=== PATIENT | male | born 1940 | race Caucasian/White ===

== ENCOUNTER 2017-03-25 08:48 | Emergency (ER) | payer OTHER ==
[2017-03-25] MEDS ORDERED: HYDROmorphONE/DILAUDID 1 MG/ML SYR IVP ONE ×2 (09:04→10:47)
--- NOTE | 2017-03-25 09:05 | EDPHY ---
HPI/HX/ROS/PE/MDM Narrative: CHIEF COMPLAINT: Back pain HPI: This patient is a 77 year old male arriving with his complaining of left- sided lumbar pain onset Tuesday afternoon. He has had history of back problems , and has been treated with shots in his spine. His most recent MRI was in November at [facility]. His current pain began suddenly, and he denies injury or unusual activity. Yesterday morning, the pain began radiating down his left leg. He took Vicodin with no relief of pain. Today, he has developed numbness on the outside of his left lower extremity below the knee. He cannot stand or walk due to pain. He denies difficulty urinating or incontinence. He denies abdominal pain, fever, or other associated symptoms. REVIEW OF SYSTEMS: Aside from elements discussed in the HPI, a comprehensive 10-point review of systems was reviewed and is negative. PMH: Denies. SOCIAL HISTORY: Works in [employer] business. at bedside. PHYSICAL EXAM: General:Patient is alert, in no acute distress. ENT:Eyes are normal to inspection. ENT inspection normal. Neck: Normal inspection. Full range of motion. Respiratory:No respiratory distress. Breath sounds normal bilaterally. Cardiovascular: Regular rate and rhythm. Strong peripheral pulses. Normal cap refill. Abdomen:The abdomen is nontender to palpation. There are no peritoneal signs. There are normal bowel sounds. Back: Tenderness at left sided sciatic notch. Normal to inspection. Skin: Normal color. No rash. Warm and dry. Extremities: Normal appearance. Full range of motion. Neuro: Oriented x3. Normal motor function. Normal sensory function. ED Course: 77 year old male presents with left-sided sciatic pain worsening since Tuesday afternoon, two days ago. Physical exam reveals tenderness over the left sciatic notch. Plan for MRI of lumbar spine. Plan to administer 1mg IV Dilaudid and 4mg IV Zofran for symptom relief. Patient is still feeling considerable pain when attempting to lie down for his MRI. Plan to administer an additional 1mg IV Dilaudid. 11:[address] Arreaga, radiologist. MRI shows multilevel degenerative disk and degenerative joint disease lumbar spine, stable appearance to prior examination. Plan to discharge home in good condition with prescriptions for Vicodin and Medrol Dosepak. He will follow up with a rheumatology specialist in one week. Return precautions discussed. The patient is comfortable with this plan. MDM: This patient presents with classic symptoms of sciatica with a history of chronic back issues. Given his report of severe pain and inability to stands secondary to pain, we performed an MRI of the L-spine which reveals worsening disease at the left L5 level, but no signs of surgical emergency. The patient has a normal neuro exam and no history of fever, trauma or incontinence to suggest other etiology. He has no abdominal pulsatile mass or pain to suggest AAA and MRI is consistent with his symptoms. He is comfortable with plan to try treatment at home with Medrol dose-milton and percocet. He will recontact his rheumatology specialist to follow-up within the next week. 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 The level of more significance is at L2-L3 which has a stable appearance to the prior examination. New over the interval is a small left posterolateral protrusion slightly compressing the L5 nerve root at the lateral recess at L4- L5. Slight worsening of the facet arthropathy at L5-S1 but causing no progressive encroachment. Otherwise stable as detailed above by level. Results called and discussed with Cedric Kerr MD, at 1133 hours 25 March 2017. Imaging: Discussed imaging studies w/ call box wirer Radiologist Medications Given: Discontinued Medications Hydromorphone HCl (Dilaudid) 1 mg IVP EDNOW ONE Stop: 03/25/17 09:05 Last Admin: 03/25/17 09:29 Dose: 1 mg Hydromorphone HCl (Dilaudid) 1 mg IVP EDNOW ONE Stop: 03/25/17 10:48 Last Admin: 03/25/17 11:18 Dose: 1 mg Ondansetron HCl (Zofran) 4 mg IVP EDNOW ONE Stop: 03/25/17 09:19 Last Admin: 03/25/17 09:29 Dose: 4 mg General Time Seen by Provider: 03/25/17 08:55 Initial Vital Signs: Initial Vital Signs Temperature (C) 36.5 C 03/25/17 08:50 Heart Rate 81 03/25/17 08:50 Respiratory Rate 16 03/25/17 08:50 Blood Pressure 138/94 H 03/25/17 08:50 O2 Sat (%) 95 03/25/17 08:50 O2 Delivery Mode Room Air Allergies/Adverse Reactions: Penicillins Allergy (Mild, Verified 06/02/09 09:04) Rash Home Medications: Medication Instructions Recorded Aspirin 03/25/17 Celebrex 03/25/17 Hydrocodone/APAP 5/325 [[place] 1 - 2 tab PO Q4H PRN #20 tab 03/25/17 5/325 (RX)] Vicodin 5-300 mg Tablet 03/25/17 methylPREDNISolone [Medrol Dose 1 each PO AD #1 ea 03/25/17 Milton] Departure - Departure Disposition: Home, Routine, Self-Care Clinical Impression: Sciatica of left side Condition: Good Instructions: Sciatica (ED), Acute Low Back Pain (ED) Additional Instructions: 1. Follow up with a rheumatology specialist within one week. We have referred you to our neurosurgeon contour path tape mill operator. 2. Take Vicodin as prescribed for severe pain. You may also use ibuprofen and Tylenol as directed on the packaging. Do not take Tylenol while you are taking Vicodin, as both of these medications contain acetaminophen. 3. Take your Medrol Dosepak as prescribed. 4. Return to the emergency department for severe pain, fever, trouble controlling your bladder or bowels, increased numbness, change in location or nature of pain or other concerns. Referrals: Mau Galindo MD [Primary Care Provider] - As per Instructions Castro Baez MD [Medical Doctor] - As per Instructions Prescriptions: Hydrocodone/APAP 5/325 [[place] 5/325 (RX)] 1 - 2 tab PO Q4H PRN #20 tab PRN Reason: Pain, Moderate methylPREDNISolone [Medrol Dose Milton] 1 each PO AD #1 ea Report Scribed for: Cedric Kerr Report Scribed by: Nasrin Mack Date of Report: 03/25/17 Time of Report: 09:46 Physician Review and Approval Statement: Portions of this note were transcribed by an ED scribe. I personally performed the history, physical exam, and medical decision making; and confirm the accuracy of the information in the transcribed note.
[2017-03-25] MEDS ORDERED: ONDANSETRON 4 MG/2 ML VIAL IVP ONE (09:18)
[2017-03-25] MEDS ORDERED: HYDROmorphONE/DILAUDID 1 MG/ML SYR ONE (10:42)
[2017-03-25 12:22] VITALS: O2SAT 97
[2017-03-25 12:36] VITALS: BP 130/90; PULSE 63; RESP 16; TEMP 97.6
== END 2017-03-25 12:37 | disposition home or self-care (01) ==
DX: M54.32 Sciatica, left side (principal); Z79.82 Long term (current) use of aspirin
CPT/HCPCS: 72148; 96374; 96375; 96376; 99285; J1170; J2405

== ENCOUNTER 2017-04-14 05:44 | Inpatient (IN) | payer OTHER ==
[2017-04-14] MEDS ORDERED: GABAPENTIN 300 MG CAP PO ONE (05:51)
[2017-04-14] MEDS ORDERED: morphINE PF 5 MG/10 ML INJ IT ONE (05:51)
[2017-04-14] MEDS ORDERED: ACETAMINOPHEN 500 MG TAB PO ONE (05:51)
[2017-04-14] MEDS ORDERED: ceFAZolin 2 GM/DEXTROSE 100 ML IV ONE (05:51)
[2017-04-14] MEDS ORDERED: DEXAMETHASONE 10 MG/ML VIAL IVP ONE (05:51)
[2017-04-14] MEDS ORDERED: fentaNYL 100 MCG/2 ML INJ IT ONE (05:51)
[2017-04-14] MEDS ORDERED: LR 1,000 ML IV ONE (05:54)
[2017-04-14] MEDS ORDERED: LIDOCAINE 1% 2 ML INJ ID PRN (05:54)
[2017-04-14] MEDS ORDERED: TRANEXAMIC ACID 1,000 MG in NS 100 ML IV ONE (06:00)
--- NOTE | 2017-04-14 06:08 | PDHPUP ---
History & Physical Update H&P update statement: This history and physical update is based on an assessment of the patient which was completed after admission or registration (within 24 hours), but prior to the surgery/procedure. H&P update: H&P reviewed & patient examined, no change in patient's condition since H&P completed
[2017-04-14] MEDS ORDERED: CHLORHEXIDINE GLUC HIBICLENS 118 ML BTL TP ONE (06:36)
[2017-04-14] MEDS ORDERED: THROMBIN (BOVINE) 5,000 UNIT VIAL TP ONE (06:36)
[2017-04-14] MEDS ORDERED: BUPIVACAINE 0.25% 30 ML SDV ONE (06:36)
[2017-04-14] MEDS ORDERED: BACITRACIN 50,000 UNITS/10 ML SYR IRR ONE (06:36)
[2017-04-14] MEDS ORDERED: MIDAZOLAM 2 MG/2 ML VIAL IVP ONE (07:05)
--- NOTE | 2017-04-14 07:08 | PDANEPAE ---
ANE History of Present Illness L2-L3 TLIF ANE Past Medical History - Cardiovascular History Hx Hypertension: No Hx Arrhythmias: No Hx Chest Pain: No Hx Coronary Artery / Peripheral Vascular Disease: No Hx CHF / Valvular Disease: No Hx Palpitations: No - Pulmonary History Hx COPD: No Hx Asthma/Reactive Airway Disease: No Hx Recent Upper Respiratory Infection: No Hx Oxygen in Use at Home: No Hx Sleep Apnea: Yes Sleep Apnea Screening Result - Last Documented: Positive - Neurologic History Hx Cerebrovascular Accident: No Hx Seizures: No Hx Dementia: No - Endocrine History Hx Diabetes: No - Renal History Hx Renal Disorders: No - Liver History Hx Hepatic Disorders: No - Neurological & Psychiatric Hx Hx Neurological and Psychiatric Disorders: No - Cancer History Hx Cancer: No - Congenital Disorder History Hx Congenital Disorders: No - GI History Hx Gastrointestinal Disorders: Yes Gastrointestinal History Comment: REFLUX/GERD controlled - Other Health History Other Health History: NONE,BRUISE EASILY - Chronic Pain History Chronic Pain: No - Surgical History Prior Surgeries: BILAT SHOULDER REPLACEMENT ANE Review of Systems Review of systems is: negative Review of Systems: - Exercise capacity Exercise capacity: >=4 METS METS (RN): 4 METS ANE Patient History - Allergies Allergies/Adverse Reactions: Penicillins Allergy (Mild, Verified 06/02/09 09:04) Rash - Home Medications Home medications: home medication list seen and reviewed Home Medications: celeCOXIB [Celebrex (*)] 200 mg PO HS 03/25/17 [Last Taken 04/12/17] Calcium Carbonate [Tums 500MG (*)] 500 mg PO DAILY 04/13/17 [Last Taken 04/12/17 ] Cholecalciferol Vit D3 [Vitamin D3 (*)] 1,000 units PO DAILY 04/13/17 [Last Taken 04/12/17] Gabapentin [Neurontin 300 MG (*)] 300 mg PO TID 04/13/17 [Last Taken 04/13/17] HYDROcodone/APAP 10/325 [[place] 10/325 (*)] 1 tab PO Q6HRS PRN 04/13/17 [Last Taken 04/14/17 03:30] Dennard-3 Fatty Acids [Fish Oil 1000 mg (*)] 1,000 mg PO DAILY 04/13/17 [Last Taken Unknown] Propylene Glycol/Peg 400/Pf [Systane 0.3-0.4% Eye Drops] 1 each OP DAILY PRN 01/22 [Last Taken 04/13/17] Psyllium Husk (with Sugar) [Metamucil Packet] 1 each PO DAILY 04/13/17 [Last Taken 04/13/17] Tamsulosin HCl [Flomax 0.4 MG (*)] 0.4 mg PO DAILY18 04/13/17 [Last Taken ] - NPO status NPO Status: no food or drink >8 hours NPO Since - Liquids (Date): 04/13/17 NPO Since - Liquids (Time): 18:30 NPO Since - Solids (Date): 04/13/17 NPO Since - Solids (Time): 18:30 - Anes Hx Anes Hx: no prior problems - Smoking Hx Smoking Status: Former smoker - Family Anes Hx Family Anes Hx: none Family Hx Anesthesia Complications: NONE ANE Labs/Vital Signs - Vital Signs Blood Pressure: 124/70 Heart Rate: 64 Respiratory Rate: 16 O2 Sat (%): 91 Height: 170.18 cm Weight: 76.204 kg ANE Physical Exam - Airway Neck exam: FROM Mallampati Score: Class 1 Mouth exam: normal dental/mouth exam - Pulmonary Pulmonary: no respiratory distress - Cardiovascular Cardiovascular: regular rate and rhythym - ASA Status ASA Status: II ANE Anesthesia Plan Anesthesia Plan: general endotracheal anesthesia
[2017-04-14] MEDS ORDERED: ROCURONIUM 50 MG/5 ML VIAL ONE (07:10)
[2017-04-14] MEDS ORDERED: ONDANSETRON 4 MG/2 ML VIAL ONE (07:10)
[2017-04-14] MEDS ORDERED: DEXAMETHASONE 4 MG/ML VIAL ONE (07:10)
[2017-04-14] MEDS ORDERED: LIDOCAINE 2% 100 MG/5 ML SYR ONE (07:10)
[2017-04-14] MEDS ORDERED: HYDROmorphONE/DILAUDID 2 MG/ML INJ ONE (07:11)
[2017-04-14] MEDS ORDERED: fentaNYL 100 MCG/2 ML INJ ONE ×2 (07:11→08:56)
[2017-04-14] MEDS ORDERED: PROPOFOL/EMULSION 500 MG/50 ML BOTTLE IV ONE (07:11)
[2017-04-14] MEDS ORDERED: PROPOFOL 200 MG/20 ML VIAL ONE (07:11)
[2017-04-14] MEDS ORDERED: REMIFENTANIL HCL 1 MG VIAL ONE (07:11)
[2017-04-14] MEDS ORDERED: DEXAMETHASONE 4 MG/ML VIAL IVP PRN (08:29)
[2017-04-14] MEDS ORDERED: PROMETHAZINE HCL 25 MG/ML INJ IVP PRN (08:29)
[2017-04-14] MEDS ORDERED: ONDANSETRON 4 MG/2 ML VIAL IVP PRN ×2 (08:29→09:22)
[2017-04-14] MEDS ORDERED: MEPERIDINE 25 MG/ML SYR IVP PRN (08:29)
[2017-04-14] MEDS ORDERED: ACETAMINOPHEN 500 MG TAB PO PRN (08:29)
[2017-04-14] MEDS ORDERED: HYDROCODONE/APAP 5/325 TAB PO PRN (08:29)
[2017-04-14] MEDS ORDERED: OXYCODONE/APAP 5/325 TAB PO PRN (08:29)
[2017-04-14] MEDS ORDERED: NALOXONE HCL 0.4 MG/ML INJ IVP PRN ×2 (08:29→09:22)
[2017-04-14] MEDS ORDERED: fentaNYL 100 MCG/2 ML INJ IVP PRN (08:29)
--- NOTE | 2017-04-14 08:31 | POSTANESTH ---
Post Anesthetic Evaluation Cardiovascular Status: Normal, Stable, Similar to Pre-Op Cond Respiratory Status: Normal, Stable, Similar to Pre-op Cond. Level of Consciousness/Mental Status: Can Participate in Eval, Alert and Oriented, Mildly Sleepy, Arousable Pain Control: Adequate, Prn Tx Ordered Nausea/Vomiting Control: Adequate, Prn Tx Ordered Complications Possibly Related to Anesthesia: None Noted
[2017-04-14] MEDS ORDERED: METHOCARBAMOL 750 MG TAB PO PRN (09:22)
[2017-04-14] MEDS ORDERED: MAGNESIUM HYDROXIDE 30 ML UDCUP PO PRN (09:22)
[2017-04-14] MEDS ORDERED: NON-FORMULARY NEW DRUG (Propylene Glycol/Peg 400/Pf [Systane 0.3-0.4% Eye Drops] 1 EACH) OP PRN (09:22)
[2017-04-14] MEDS ORDERED: LACTULOSE 20 GM/30 ML UDCUP PO PRN (09:22)
[2017-04-14] MEDS ORDERED: BISACODYL 10 MG SUPP PR PRN (09:22)
[2017-04-14] MEDS ORDERED: HYDROCODONE/APAP 10/325 TAB PO PRN (09:22)
[2017-04-14] MEDS ORDERED: HYDROmorphONE/DILAUDID 6 MG/30 ML PCA IV PRN (09:22)
[2017-04-14] MEDS ORDERED: diphenhydrAMINE 25 MG CAP PO PRN (09:22)
[2017-04-14] MEDS ORDERED: ONDANSETRON DISINTEGRATING 4 MG TAB PO PRN (09:22)
[2017-04-14] MEDS ORDERED: NS 1,000 ML IV SCH (09:30)
--- NOTE | 2017-04-14 09:30 | SOAPPROG ---
SOAP Progress Note Assessment/Plan: Assessment: 77 yo M sp L2/3 TLIF Plan: stable LSO brace to be fit by Fritz Freeman PT/OT lovenox on POD #1 please call with neuro changes 04/14/17 09:29 Subjective: + back pain, no leg pain Objective: Vital Signs Temp Pulse Resp BP Pulse Ox 36.7 C 64 16 124/70 H 91 L 04/14/17 06:07 04/14/17 07:08 04/14/17 07:08 04/14/17 07:08 04/14/17 07:08 awake, alert PERRL, no facial droop AIRAM x 4 + light touch ICD10 Worksheet Patient Problems: Problems Problem Status Onset Fusion of spine of lumbar region Acute - ICD10 Problem Qualifiers (1) Fusion of spine of lumbar region
[2017-04-14] MEDS ORDERED: SYSTANE OP PRN (09:40)
[2017-04-14] MEDS ORDERED: EYE OP PRN (09:40)
--- NOTE | 2017-04-14 09:48 | GOP ---
[f rep st] OPERATIVE REPORT DATE OF OPERATION: 04/14/2017 SURGEON: Bob Shepherd MD NEUROSURGEON: Bob Shepherd MD FORM WORKER: DARIO Ashford. ANESTHESIA: General endotracheal. PREOPERATIVE DIAGNOSIS: 1. Severe L2-3 degenerative disk disease with lateral disc herniation and severe L2/L3 radiculopathi es. 2. Intractable pain. 3. Failed conservative care. POSTOPERATIVE DIAGNOSIS: 1. Severe L2-3 degenerative disk disease with lateral disc herniation and severe L2/L3 radiculopathi es. 2. Intractable pain. 3. Failed conservative care. PROCEDURE PERFORMED: 1. Mini open exposure for left-sided L2-3 far lateral transpedicular decompression with L2-3 posteri or nonsegmental (pedicle screw and axial device) fixation and posterolateral fusion with local autogr aft and bone morphogenic protein and morselized allograft. 2. L2-3 posterior/transforaminal lumbar interbody fusion with 2 structural PEEK interbody spacers, l ocal autograft and bone morphogenic protein. 3. Use of intraoperative microscopy, fluoroscopy, and computer volumetric stereotactic navigation wi th intraoperative neurophysiologic testing. 4. Injection of intrathecal narcotic analgesics for postoperative pain control. FINDINGS: ESTIMATED BLOOD LOSS: Trace. INDICATIONS: The patient is a 77-year-old male with intractable low back pain and left lower extremi ty radicular symptoms secondary to severe disk degeneration and collapse with neural foraminal imping ement at the L2-3 level. He has failed extensive conservative care and presents now for surgical dec ompression and stabilization. DESCRIPTION OF PROCEDURE: After informed consent was obtained, the patient was taken to the operatin g room and placed in the prone position on the Alfredo table. The lumbosacral area was prepped and d raped in a sterile fashion. After fluoroscopic localization of the correct level, the subcutaneous a nd intramuscular tissues were infiltrated with local anesthesia. A midline linear incision was then created over the L2-3 spinous processes. This was carried down the fascial layer, which was incised using monopolar electrocautery and carried in a subperiosteal plane along the spinous processes and l marina bilaterally. Intraoperative fluoroscopy was again utilized to verify the correct levels. Foll owing this, the dissection was carried out over the facet joints. The microscope was then brought in and a left-sided far lateral trans facet, transpedicular decompression was performed with complete u nroofing of the facet joint on the left side at the L2-3 level. The L2 and L3 neural foramen were wi ana maria decompressed. The spinous process was undercut as well and a central canal decompression was pe rformed. Following adequate decompression, the [employer] [place] neuronavigational system was brought in and u sing computer volumetric stereotactic navigation, pedicle screws were placed on the left at the L2 an d L3 levels. Each individual screw was tested neurophysiologically with monopolar electrostimulation and interpretation of the potentials by the surgeon. A stefano was then placed and secured under distra ction, during which time a complete diskectomy was performed with preparation of endplates and placem ent of 2 structural PEEK interbody spacers, local autograft and bone morphogenic protein for an L2-3 posterior/transforaminal lumbar interbody fusion. Following this, a screw and stefano system were placed in a slight amount of compression in order to facilitate bony union and to minimize the potential fo r posterior graft migration. The remaining lamina and facet joint on the right side were then extens ively decorticated, and the residual local autograft along with bone morphogenic protein and morseliz ed allograft was placed out laterally for posterolateral fusion at the L2-3 level. Following re-veri fication of good position of the screws, stfeano, interbody spacers and Axle interbody spacers, the wound was copiously irrigated and meticulous hemostasis was achieved. An Axle device was placed at the L2 -3 level in lieu of pedicle screws on the right side in order to maximize the bony surface area for t he posterolateral fusion and minimizing further risk of complications with more pedicle screws. Foll owing this, a drain was placed. The wound was copiously irrigated with antibiotic irrigation. 200 m cg of Duramorph along with 50 mcg of fentanyl were injected intrathecally for postoperative pain cont rol. The wound was closed in a layered fashion using interrupted Vicryl sutures followed by Steri-Str ips on the skin. COMPLICATIONS: None. DISPOSITION: The patient is currently in the process of being repositioned for extubation. /[id number]/MODL
[2017-04-14] MEDS ORDERED: DIAZEPAM 5 MG TAB PO PRN (09:49)
[2017-04-14] MEDS: ACETAMINOPHEN 500 MG TAB PO SCH ×2 (14:13→21:59)
[2017-04-14] MEDS: ceFAZolin 2 GM/DEXTROSE 100 ML IV SCH ×2 (14:13→22:01)
[2017-04-14] MEDS: GABAPENTIN 300 MG CAP PO SCH ×2 (16:30→21:58)
[2017-04-14] MEDS: POLYETHYLENE GLYCOL 3350 17 GM PKT PO SCH ×2 (16:30→21:58)
[2017-04-14] MEDS: TAMSULOSIN HCL 0.4 MG CAP PO SCH (18:15)
[2017-04-14] MEDS: morphINE SR 15 MG TAB PO SCH (21:59)
[2017-04-14] MEDS: SENNOSIDES/DOCUSATE SODIUM TAB PO SCH (21:59)
[2017-04-14] MEDS: FAMOTIDINE 20 MG TAB PO SCH (21:59)
[2017-04-15 04:49] LABS: ABSOLUTE IMMATURE GRANULOCYTES 0.22 10^3/uL (0.00-0.10); ADD DIFF? NO; ADD MORPH? NO; ADD SCAN? NO; ATYPICAL LYMPHOCYTE FLAG 0 (0-99); FRAGMENT RBC FLAG 0 (0-99); HEMATOCRIT 34.1 % (40.0-51.0); HEMOGLOBIN 11.1 g/dL (13.7-17.5); LEFT SHIFT FLG 0 (0-99); LIPEMIA HEMOLYSIS FLAG 80 (0-99); MEAN CELL HEMOGLOBIN 32.6 pg (27.9-34.1); MEAN CELL HEMOGLOBIN CONCENTR. 32.6 g/dL (32.4-36.7); MEAN PLATELET VOLUME 11.6 fL (8.7-11.7); PLATELET CLUMPS FLAG 0 (0-99); PLATELET COUNT 200 10^3/uL (150-400); RED BLOOD CELL COUNT 3.41 10^6/uL (4.40-6.38); RED CELL DISTRIBUTION WIDTH 15.2 % (11.5-15.2)
[2017-04-15 05:09] LABS: ANION GAP 6 mEq/L (8-16); CARBON DIOXIDE 24 mEq/l (22-31); CHLORIDE 104 mEq/L (97-110); CREATININE 0.9 mg/dL (0.7-1.3); GLOMERULAR FILTRATION RATE > 60; GLUCOSE 107 mg/dL (70-100); POTASSIUM 4.1 mEq/L (3.5-5.2); SODIUM 134 mEq/L (134-144)
[2017-04-15] MEDS: ACETAMINOPHEN 500 MG TAB PO SCH ×3 (05:38→22:12)
[2017-04-15] MEDS: GABAPENTIN 300 MG CAP PO SCH ×3 (08:30→22:13)
[2017-04-15] MEDS: CALCIUM CARBONATE 500 MG CHEWABLE TAB PO SCH (08:30)
[2017-04-15] MEDS: SENNOSIDES/DOCUSATE SODIUM TAB PO SCH ×2 (08:31→22:15)
[2017-04-15] MEDS: PSYLLIUM METAMUCIL 1 PKT PO SCH (08:32)
[2017-04-15] MEDS: FAMOTIDINE 20 MG TAB PO SCH ×2 (08:34→22:13)
[2017-04-15] MEDS: ENOXAPARIN 40 MG/0.4 ML SYR SC SCH (08:37)
--- NOTE | 2017-04-15 09:28 | SOAPPROG ---
SOAP Progress Note Assessment/Plan: Assessment: Doing well POD #1 s/p L2/3 TLIF pain well controlled Plan: Lovenox starts today Continue SETH drain x 5 days LSO when out of bed xrays today PT/OT DC home once xrays completed as long as he's doing well. D/W Dr. Ruggiero 04/15/17 09:25 d 04/15/17 09:30 Subjective: awake, alert, comfortable. Denies pain weakness or tingling Objective: Vital Signs Temp Pulse Resp BP Pulse Ox 36.8 C 66 18 96/58 L 95 04/15/17 03:26 04/15/17 08:00 04/15/17 08:00 04/15/17 08:00 04/15/17 08:00 Laboratory Results 04/15/17 04:25 04/15/17 04:25 04/14/17 04/15/17 04/16/17 05:59 05:59 05:59 Intake Total 2799 Output Total 1700 Balance 1099 SETH : 110ml Neuro: CRUZ, sens +LT Incision: CDI ICD10 Worksheet Patient Problems: Problems Problem Status Onset Fusion of spine of lumbar region Acute
[2017-04-15] MEDS: morphINE SR 15 MG TAB PO SCH ×2 (10:26→22:14)
[2017-04-15] MEDS: POLYETHYLENE GLYCOL 3350 17 GM PKT PO SCH ×3 (10:27→22:15)
--- NOTE | 2017-04-15 10:46 | WOCRNPDOC ---
WOCRN Advanced Assessment Note - Skin Integrity Problem, Advanced Assess Gluteal Cleft Dressing Type: Allevyn Life Exudate Amount: None Exudate Characteristic(s): None Integumentary Issue Intervention: Barrier Cream Applied (Calazime) Daisy Wound Tissue: Blanching, Intact Daisy Wound Swelling: None Wound Bed Color: Red Wound Bed Constitution: Smooth Tissue (non-granulating) Site Measurement - Head-to-Toe Length X Width X Depth (cm): 0.2cmx0.5cmx0.1cm Skin Integrity Problem Comment: Small, linear area of partial-thickness tissue loss noted in patient's R gluteal cleft. Appearance is more consistent w/ moisture-associated damage than pressure injury. Calazime cream applied to this wound and surrounding skin. Wound care does not need to follow this patient going forward. Report given to building architectural designerIBAN Nj.
[2017-04-15] MEDS: oxyCODONE IR 5 MG TAB PO PRN ×2 (17:07→22:21)
[2017-04-15] MEDS: TAMSULOSIN HCL 0.4 MG CAP PO SCH (17:07)
[2017-04-16] MEDS: ACETAMINOPHEN 500 MG TAB PO SCH (04:42)
[2017-04-16] MEDS: oxyCODONE IR 5 MG TAB PO PRN ×2 (04:44→09:59)
[2017-04-16 05:27] LABS: HEMATOCRIT 35.5 % (40.0-51.0); HEMOGLOBIN 11.4 g/dL (13.7-17.5); MEAN CELL HEMOGLOBIN 32.5 pg (27.9-34.1); MEAN CELL HEMOGLOBIN CONCENTR. 32.1 g/dL (32.4-36.7); MEAN CELL VOLUME 101.1 fL (81.5-99.8); RED BLOOD CELL COUNT 3.51 10^6/uL (4.40-6.38); RED CELL DISTRIBUTION WIDTH 15.6 % (11.5-15.2)
--- NOTE | 2017-04-16 07:16 | SOAPPROG ---
SOAP Progress Note Assessment/Plan: Assessment: Plan: Objective: Vital Signs Temp Pulse Resp BP Pulse Ox 37.1 C 64 18 106/63 95 04/16/17 03:18 04/16/17 03:18 04/16/17 03:18 04/16/17 03:18 04/16/17 03:18 Laboratory Results 04/16/17 04:41 04/15/17 04:25 04/15/17 04/16/17 04/17/17 05:59 05:59 05:59 Intake Total 2799 150 Output Total 1700 5 Balance 1099 145 ICD10 Worksheet Patient Problems: Problems Problem Status Onset Fusion of spine of lumbar region Acute
--- NOTE | 2017-04-16 07:19 | SOAPPROG ---
SOAP Progress Note Assessment/Plan: Assessment: Doing well POD #2 s/p L2/3 TLIF pain well controlled Plan: d/c home today, WBC decreased to 15 from 21 SETH drain 110 output, discuss removal with Dr. Elvia DE PAZ when out of bed xrays show intact hardware with stable alignment PT/OT 04/16/17 07:17 Subjective: no complaints Objective: Vital Signs Temp Pulse Resp BP Pulse Ox 37.1 C 64 18 106/63 95 04/16/17 03:18 04/16/17 03:18 04/16/17 03:18 04/16/17 03:18 04/16/17 03:18 Laboratory Results 04/16/17 04:41 04/15/17 04:25 04/15/17 04/16/17 04/17/17 05:59 05:59 05:59 Intake Total 2799 150 Output Total 1700 5 Balance 1099 145 AAOx3, full strength/sensation, no drift, wound c/d/i - Pending Discharge Pending Discharge Within 24 Hours: Yes Pending Discharge Date: 04/17/17 Pending Discharge Time: 11:00 ICD10 Worksheet Patient Problems: Problems Problem Status Onset Fusion of spine of lumbar region Acute
[2017-04-16 08:20] VITALS: BP 119/72; PULSE 69; RESP 16; TEMP 98; O2SAT 97
[2017-04-16] MEDS: CALCIUM CARBONATE 500 MG CHEWABLE TAB PO SCH (10:00)
[2017-04-16] MEDS: PSYLLIUM METAMUCIL 1 PKT PO SCH (10:00)
[2017-04-16] MEDS: FAMOTIDINE 20 MG TAB PO SCH (10:00)
[2017-04-16] MEDS: GABAPENTIN 300 MG CAP PO SCH (10:00)
[2017-04-16] MEDS: morphINE SR 15 MG TAB PO SCH (10:15)
[2017-04-16] MEDS: ENOXAPARIN 40 MG/0.4 ML SYR SC SCH (10:15)
[2017-04-16] MEDS: SENNOSIDES/DOCUSATE SODIUM TAB PO SCH (10:16)
[2017-04-16] MEDS: POLYETHYLENE GLYCOL 3350 17 GM PKT PO SCH (10:16)
--- NOTE | 2017-04-17 17:06 | ASDISCHSUM ---
Discharge Information Plan Status:Home with No Needs Medically Cleared to Leave:04/16/2017 Discharge Date:04/16/2017 12:41 PM CM D/C Disposition:Home, Routine, Self-Care ADT D/C Disposition:Home, Routine, Self-Care Projected Discharge Date:04/16/2017 12:00 AM Transportation at D/C:Family Discharge Delay Reason: Follow-Up Date:04/16/2017 12:00 AM Discharge Slot:1 - 8:01 am - 12:00 noon Final Diagnosis:L2-3 TLIF Placement Information Patient Contact Information Contact Name:JOHN Relationship: Address:[address] City:[place] Alternate Phone: State/Zip Code:[place] [phone] Email: Financial Information Financial Class: Primary Plan Desc:MEDICARE INPATIENT Primary Plan Number:[id number] Secondary Plan Desc:TAMARA PPO HMO OPEN ACC LOCAL Secondary Plan Number:[id number] Assessment Information [facility] CM Progress Note CM Note CM Note Notes: Pt had planned TLIF, OT rec home and PT rec outpatient. No CM needs identified at this time. Anticipate pt will d/c when medically stable. CM available for changes/needs. Date Signed: 04/15/2017 04:00 PM Electronically Signed By:Arminda Chu Intervention Information
--- NOTE | 2017-04-17 17:08 | ASMTCMCOM ---
CM Note CM Note Notes: Reviewed chart, spoke w/ IBAN Garibay. Pt to discharge home independently w/ family support and no identified needs. PT rec outpt rehab, OT rec home w/ no needs. Pt to f/u as directed. CM avail for any further issues or concerns. Date Signed: 04/16/2017 01:46 PM Electronically Signed By:Leeann Welch
== END 2017-04-16 12:41 | disposition home or self-care (01) | DRG 460 ==
LOC: F3N 05:44
PROVIDERS: ADMIT Neurological Surgery; ATTEND Neurological Surgery
PROC: 0SG00AJ Fusion of Lumbar Vertebral Joint with Interbody Fusion Device, Posterior Approach, Anterior Column, Open Approach (ICD-10-PCS; principal; 2017-04-14 07:15)
PROC: 01NB0ZZ Release Lumbar Nerve, Open Approach (ICD-10-PCS; principal; 2017-04-14 07:15)
PROC: 3E0U0GB Introduction of Recombinant Bone Morphogenetic Protein into Joints, Open Approach (ICD-10-PCS; principal; 2017-04-14 07:15)
DX: M51.16 Intervertebral disc disorders with radiculopathy, lumbar region (principal)
CPT/HCPCS: 97161-GP; 97165-GO; C1713; C1762; G8978-GP-CI; G8979-GP-CI; G8980-GP-CI; G8987-GO-CI; G8988-GO-CI; G8989-GO-CI; J0171; J0690; J1100; J1170; J1650; J2001; J2274; J2405; J2704; J3010

== ENCOUNTER → 2017-05-16 | Outpatient (CLI) | payer OTHER | LOC: FLAB 12:56 | PROVIDERS: ATTEND Physician Assistant Surgical | DX: Z09 Encounter for follow-up examination after completed treatment for conditions other than malignant neoplasm (principal); Z98.1 Arthrodesis status ==

== ENCOUNTER → 2017-06-29 | Outpatient (CLI) | payer OTHER | LOC: CIMAGING 09:24 | PROVIDERS: ATTEND Physician Assistant Surgical | DX: M12.88 Other specific arthropathies, not elsewhere classified, other specified site (principal); M79.9 Soft tissue disorder, unspecified; Z98.1 Arthrodesis status | CPT/HCPCS: 72131-PO ==

== ENCOUNTER → 2017-10-14 | Outpatient (CLI) | payer OTHER | LOC: FIMAGING 09:19 | PROVIDERS: ATTEND Neurological Surgery | DX: Z09 Encounter for follow-up examination after completed treatment for conditions other than malignant neoplasm (principal); Z98.1 Arthrodesis status ==

== ENCOUNTER → 2018-04-14 | Outpatient (CLI) | payer OTHER | LOC: FIMAGING 08:47 | PROVIDERS: ATTEND Physician Assistant Surgical | DX: M51.36 Other intervertebral disc degeneration, lumbar region (principal) ==

== ENCOUNTER → 2018-12-22 | Outpatient (CLI) | payer OTHER | LOC: BMCIMAGING 14:34 ==